=== PATIENT | male | born 1980 | race Caucasian/White ===

== ENCOUNTER 2016-09-02 22:33 | Inpatient (IN) | payer OTHER ==
[~2016-09-02] VITALS: Ht 177.8 cm; Wt 99.3 kg
[2016-09-02 23:09] LABS: BASOPHILS % (AUTO) 1.1 % (0.0-2.0); EOSINOPHILS % (AUTO) 0.4 % (1.0-6.0); HEMATOCRIT 45.2 % (41-53); HEMOGLOBIN 14.7 g/dL (13.5-17.5); LYMPHOCYTES # (AUTO) 1.5 K/uL (1.0-4.8); LYMPHOCYTES % (AUTO) 15.6 % (22.0-44.0); MEAN CORPUSCULAR HEMOGLOBIN 27.9 pg (26.0-34.0); MEAN CORPUSCULAR HGB CONC 32.6 G/dL (31.0-37.0); MEAN CORPUSCULAR VOLUME 85 fL (80-100); MONOCYTES # (AUTO) 0.6 K/uL (0.1-1.0); MONOCYTES % (AUTO) 5.8 % (2.0-9.0); NEUTROPHILS # (AUTO) 7.6 K/uL (1.8-7.7); NEUTROPHILS % (AUTO) 77.1 % (40.0-70.0); PLATELET COUNT (AUTO) 237 K/uL (150-450); RED BLOOD CELL COUNT(AUTO) 5.29 MIL/uL (4.50-5.90); RED CELL DISTRIBUTION WIDTH 12.9 % (11.5-14.5); WHITE BLOOD COUNT (AUTO) 9.9 K/uL (4.5-11.0)
[2016-09-02 23:17] LABS: ANION GAP 13 mmol/L (8-16); CALCIUM, TOTAL 8.2 mg/dL (8.8-10.5); CARBON DIOXIDE 25 mmol/L (22-29); CHLORIDE 103 mmol/L (98-107); CREATININE 1.04 mg/dL (0.60-1.30); GLOMERULAR FILTR. RATE CALC > 60 mL/min (>60); POTASSIUM 3.2 mmol/L (3.5-5.1); SODIUM SERUM 141 mmol/L (136-145); UREA NITROGEN, BLOOD 14 mg/dL (7-18)
[2016-09-02 23:23] LABS: ALANINE AMINOTRANSFERASE 57 U/L (12-78); ALBUMIN 3.8 g/dL (3.4-5.0); ASPARTATE AMINOTRANSFERASE 42 U/L (15-37); BILIRUBIN,TOTAL 1.1 mg/dL (0.1-1.0); TOTAL PROTEIN, SERUM 7.6 g/dL (6.4-8.2)
[2016-09-03] MEDS ORDERED: POTASSIUM CHLORIDE 10% 40 MEQ/30 ML LIQUID UDCUP PO ONE (01:45)
[2016-09-03] MEDS ORDERED: ZOLPIDEM TARTRATE 10 MG TABLET PO PRN (02:00)
[2016-09-03] MEDS ORDERED: HALOPERIDOL 5 MG TABLET PO PRN (02:00)
[2016-09-03] MEDS ORDERED: LORazepam 2 MG TABLET PO PRN (02:00)
[2016-09-03 06:12] LABS: APPEARANCE,URINE CLEAR (CLEAR); GLUCOSE, URINE (UA) NEGATIVE (NEGATIVE); KETONES,URINE NEGATIVE (NEGATIVE); LEUKOCYTE ESTERASE ,URINE NEGATIVE (NEGATIVE); OCCULT BLOOD,URINE NEGATIVE (NEGATIVE); PH,URINE 6.5 (5.0-8.0); PROTEIN,URINE NEGATIVE (NEGATIVE)
[2016-09-03 06:13] LABS: ADD UA MICROSCOPIC NO
[2016-09-03] MEDS ORDERED: GuaiFENesin/D-METHORPHAN [SUGAR-FREE] 200-20MG/10 ML SYRUP UDCUP PO PRN (10:45)
[2016-09-03] MEDS ORDERED: HydrOXYzine PAMOATE 50 MG CAPSULE PO PRN (10:45)
[2016-09-03] MEDS ORDERED: LOPERAMIDE HCL 2 MG CAPSULE PO PRN (10:45)
[2016-09-03] MEDS ORDERED: CYANOCOBALAMIN 1,000 MCG/ML VIAL IM ONE (10:45)
[2016-09-03] MEDS: FOLIC ACID 1 MG TABLET PO SCH (11:53)
[2016-09-03] MEDS: MULTIVITAMINS WITH MINERALS, THERAPEUTIC TABLET PO SCH (11:53)
[2016-09-03] MEDS: THIAMINE HCL 100 MG TABLET PO SCH ×2 (11:53→16:40)
[2016-09-03] MEDS: LORazepam 2 MG TABLET PO PRN ×3 (16:42→22:58)
[2016-09-03 22:00] VITALS: BP_SYST 160; BP_SYST 161; BP_DIAS 115; BP_DIAS 116
[2016-09-03 22:15] VITALS: BP 161/116
[2016-09-03 22:20] VITALS: BP 160/115
[2016-09-04 02:00] VITALS: BP 140/90
[2016-09-04] MEDS ORDERED: LORazepam 2 MG TABLET PO PRN (07:00)
[2016-09-04] MEDS: MULTIVITAMINS WITH MINERALS, THERAPEUTIC TABLET PO SCH (09:00)
[2016-09-04] MEDS: LORazepam 2 MG TABLET PO SCH ×2 (09:00→13:00)
[2016-09-04] MEDS: THIAMINE HCL 100 MG TABLET PO SCH (09:00)
[2016-09-04] MEDS: FOLIC ACID 1 MG TABLET PO SCH (09:00)
[2016-09-04] MEDS ORDERED: FOLI1 PO (14:04)
[2016-09-04] MEDS ORDERED: MV-M1TAB2 PO (14:05)
[2016-09-04] MEDS ORDERED: THIA100 PO (14:05)
[2016-09-06] MEDS ORDERED: LORazepam 1 MG TABLET PO PRN (07:00)
[2016-09-06] MEDS ORDERED: LORazepam 1 MG TABLET PO SCH (09:00)
[2016-09-07] MEDS ORDERED: LORazepam 1 MG TABLET PO PRN (07:00)
== END 2016-09-04 15:30 | disposition home or self-care (01) | DRG 885 ==
LOC: EMS 22:35 → 3EI 09-03 03:56 → 3EX 09-03 20:20
DX: F33.2 Major depressive disorder, recurrent severe without psychotic features (principal); R45.851 Suicidal ideations; E87.6 Hypokalemia; F10.129 Alcohol abuse with intoxication, unspecified; Y90.8 Blood alcohol level of 240 mg/100 ml or more; F29 Unspecified psychosis not due to a substance or known physiological condition; E83.51 Hypocalcemia; G47.00 Insomnia, unspecified; K59.00 Constipation, unspecified; Z81.8 Family history of other mental and behavioral disorders; Z71.41 Alcohol abuse counseling and surveillance of alcoholic
CPT/HCPCS: 99285; G0480; J3420

== ENCOUNTER 2016-09-25 19:12 | Emergency (ER) | payer OTHER ==
[~2016-09-25] VITALS: Ht 177.8 cm; Wt 102.3 kg
[~2016-09-25 19:12] MED LIST: FOLI1 PO; MV-M1TAB2 PO; THIA100 PO
[2016-09-25 19:54] LABS: HEMOGLOBIN 16.4 g/dL (13.5-17.5); MEAN CORPUSCULAR HEMOGLOBIN 27.8 pg (26.0-34.0); MEAN CORPUSCULAR HGB CONC 32.2 G/dL (31.0-37.0); MEAN CORPUSCULAR VOLUME 86 fL (80-100); PLATELET COUNT (AUTO) 310 K/uL (150-450); RED BLOOD CELL COUNT(AUTO) 5.91 MIL/uL (4.50-5.90); RED CELL DISTRIBUTION WIDTH 13.5 % (11.5-14.5)
[2016-09-25 19:59] LABS: WHITE BLOOD COUNT (AUTO) 30.2 K/uL (4.5-11.0)
[2016-09-25 20:08] LABS: ANION GAP 17 mmol/L (8-16); CALCIUM, TOTAL 8.2 mg/dL (8.8-10.5); CARBON DIOXIDE 23 mmol/L (22-29); CHLORIDE 105 mmol/L (98-107); CREATININE 1.15 mg/dL (0.60-1.30); GLOMERULAR FILTR. RATE CALC > 60 mL/min (>60); POTASSIUM 3.5 mmol/L (3.5-5.1); SODIUM SERUM 145 mmol/L (136-145); UREA NITROGEN, BLOOD 16 mg/dL (7-18)
[2016-09-25 20:13] LABS: ALANINE AMINOTRANSFERASE 28 U/L (12-78); ALBUMIN 4.2 g/dL (3.4-5.0); ASPARTATE AMINOTRANSFERASE 37 U/L (15-37); BILIRUBIN,TOTAL 0.6 mg/dL (0.1-1.0); TOTAL PROTEIN, SERUM 8.3 g/dL (6.4-8.2)
[2016-09-25] MEDS ORDERED: SODIUM CHLORIDE 0.9% 1,000 ML IV ONE (20:45)
[2016-09-25 20:50] LABS: BAND NEUTROPHILS % (MANUAL) 10 % (1-5); BASOPHILS % (MANUAL) 1 % (0-2); LYMPHOCYTES % (MANUAL) 8 % (22-44); TOTAL CELLS COUNTED 100
[2016-09-25 23:28] VITALS: BP 142/92
[2016-09-25] MEDS ORDERED: MAGNESIUM SULFATE 2 GM, MVI, ADULT NO.1 WITH VIT K 10 ML, THIAMINE HCL 100 MG, FOLIC AC... IV ONE ×5 (23:45)
== END 2016-09-26 01:26 | disposition home or self-care (01) ==
LOC: EMS 19:14
DX: F10.229 Alcohol dependence with intoxication, unspecified (principal); D72.829 Elevated white blood cell count, unspecified; Y90.8 Blood alcohol level of 240 mg/100 ml or more
CPT/HCPCS: 36415; 80053; 80307; 85025; 96365; 99285; G0480; J3411; J3475; J3490 ×2; J7030

== ENCOUNTER 2016-10-02 20:43 | Emergency (ER) | payer OTHER ==
[~2016-10-02] VITALS: Ht 177.8 cm; Wt 110.0 kg
[2016-10-02 21:02] LABS: GLUCOSE,POINT OF CARE 112 MG/DL (70-110)
[2016-10-02 23:42] VITALS: BP 150/98
== END 2016-10-03 00:26 | disposition home or self-care (01) ==
LOC: EMS 20:44
DX: S00.212A Abrasion of left eyelid and periocular area, initial encounter (principal); S00.31XA Abrasion of nose, initial encounter; F10.229 Alcohol dependence with intoxication, unspecified; W19.XXXA Unspecified fall, initial encounter; Y93.89 Activity, other specified; Y92.89 Other specified places as the place of occurrence of the external cause; Y99.8 Other external cause status
CPT/HCPCS: 70450; 70486; 82962; 99285